=== PATIENT | male | born 1955 | race American Indian/Alaskan Native ===

== ENCOUNTER 2017-02-21 06:40 | Emergency (ER) | payer OTHER ==
[2017-02-21 07:53] LABS: Basophils % (Auto) 0.9 % (0.0-1.8); Hematocrit 40.3 % (35.5-45.6); Hemoglobin 13.3 gm/dl (11.8-15.2); Mean Corpuscular HGB Conc 33 % (32-34); Mean Corpuscular Hemoglobin 28 pg (28-32); Mean Corpuscular Volume 84 fl (84-94); Platelet Count 181 K/mm3 (140-440); Red Blood Count 4.78 M/mm3 (3.65-5.03); Red Cell Distribution Width 13.8 % (13.2-15.2); White Blood Count 5.8 K/mm3 (4.5-11.0)
[2017-02-21 08:08] LABS: Anion Gap 17 mmol/L; BUN/Creatinine Ratio 12; Blood Urea Nitrogen 11 mg/dL (9-20); Carbon Dioxide 26 mmol/L (22-30); Chloride 102.5 mmol/L (98-107); Glucose 105 mg/dL (75-100); Potassium 3.8 mmol/L (3.6-5.0); Sodium 142 mmol/L (137-145)
[2017-02-21] MEDS ORDERED: MOTRIN PO ONE (10:21)
[2017-02-21] MEDS ORDERED: TYLENOL PO ONE (10:21)
[2017-02-21 10:43] LABS: Partial Thromboplastin Time 24.7 Sec. (24.2-36.6)
--- NOTE | 2017-02-21 11:12 | XRay Report ---
CHEST 2 VIEWS INDICATION: Chest pain. COMPARISON: 08/25/2012 FINDINGS: PA and lateral chest radiographs again suggest slight left ventricular prominence and post CABG changes with grossly normal mediastinal and hilar contours. Aortic knob calcifications. No pleural effusions or CHF. Slight thoracic spine degenerative spurring. CONCLUSION: No acute chest process or significant interval change, as described. Thank you for the opportunity to participate in this patient's care.
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
[2017-02-21 11:37] VITALS: BP 125/78
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
== END 2017-02-21 11:37 | disposition home or self-care (01) ==
LOC: ED 06:40
DX: R07.89 Other chest pain (principal); E11.9 Type 2 diabetes mellitus without complications; Z95.1 Presence of aortocoronary bypass graft
CPT/HCPCS: 36415; 71020; 80048; 84484; 85025; 85610; 85730; 93005; 93010

== ENCOUNTER 2021-10-11 09:46 | Emergency (ER) | payer OTHER ==
[2021-10-11 10:07] VITALS: BP 109/72
--- NOTE | 2021-10-11 10:52 | Electrocardiograph Report ---
[facility] Test Date: 2021-10-11 Test Time: 10:13:09 Pat Name: KEVYN TRAN Department: Room: Gender: M Senior Account Manager: VARGAS : 1955 Requested By: KESHAV PARKER Order Number: [id number] Reading MD: Krystian Arce Measurements Intervals Foster Rate: 54 P: 75 OR: 163 QRS: 42 QRSD: 92 T: -52 QT: 429 QTc: 407 Interpretive Statements Sinus rhythm Inferior infarct, age indeterminate Nonspecific T abnormalities, lateral leads No previous ECG available for comparison Electronically Signed On 10-11-2021 10:51:59 EDT by Krystian Arce
[2021-10-11 14:15] LABS: Hematocrit 41.3 % (35.5-45.6); Hemoglobin 13.1 gm/dl (11.8-15.2); Mean Corpuscular HGB Conc 32 % (32-34); Mean Corpuscular Volume 83 fl (84-94); Red Blood Count 5.01 M/mm3 (3.65-5.03); Red Cell Distribution Width 14.9 % (13.2-15.2)
[2021-10-11 15:15] LABS: Platelet Count 194 K/mm3 (140-440)
--- NOTE | 2021-10-11 15:17 | Emergency Department Report ---
ED General Adult HPI - General Chief complaint: Dizziness Stated complaint: DIZZY,LOW BS PUI?: No Time Seen by Provider: 10/11/21 12:41 Source: patient Mode of arrival: Ambulatory Limitations: No Limitations - History of Present Illness Initial comments: Patient is a 65-year-old male that comes to the ER complaining of morning d izziness after he takes his metoprolol. Heart rate today noted to be in the 50s. He does endorse weakness and muscle fatigue as well. He denies chest pain or shortness of breath. Home medications include aspirin Metformin Lisinopril And metoprolol He takes Motrin for his low back pain. He has an appointment with orthopedics tomorrow. Patient denies any fever or chills. He denies any cough. He denies any dysuria. Denies any back pain or abdominal pain. Denies nausea vomiting diarrhea. - Related Data Allergies Allergy/AdvReac Type Severity Reaction Status Date / Time No Known Allergies Allergy Unverified 02/21/17 06:58 ED Review of Systems ROS: Stated complaint: DIZZY,LOW BS Other details as noted in HPI Comment: All other systems reviewed and negative ED Past Medical Hx - Past Medical History Previous Medical History?: Yes Hx Hypertension: Yes Hx Diabetes: Yes - Surgical History Past Surgical History?: Yes Additional Surgical History: open heart sx 2006, no stents - Family History Family history: no significant - Social History Smoking Status: Never Smoker Substance Use Type: Alcohol ED Physical Exam - General Limitations: No Limitations General appearance: alert, in no apparent distress - Head Head exam: Present: atraumatic, normocephalic - Eye Eye exam: Present: normal appearance - ENT ENT exam: Present: mucous membranes moist - Neck Neck exam: Present: normal inspection - Respiratory Respiratory exam: Present: normal lung sounds bilaterally. Absent: respiratory distress - Cardiovascular Cardiovascular Exam: Present: regular rate, normal rhythm. Absent: systolic murmur, diastolic murmur, rubs, gallop - GI/Abdominal GI/Abdominal exam: Present: soft, normal bowel sounds - Rectal Rectal exam: Present: deferred - Extremities Exam Extremities exam: Present: normal inspection - Back Exam Back exam: Present: normal inspection - Neurological Exam Neurological exam: Present: alert, oriented X3 - Psychiatric Psychiatric exam: Present: normal affect, normal mood - Skin Skin exam: Present: warm, dry, intact, normal color. Absent: rash ED Course Vital Signs 10/11/21 10:06 Temperature 98.5 F Pulse Rate 55 L Respiratory 16 Rate Blood Pressure 109/72 [Left] O2 Sat by Pulse 96 Oximetry ED Medical Decision Making - Lab Data Result diagrams: 10/11/21 13:41 10/11/21 13:41 - EKG Data EKG shows normal: sinus rhythm Rate: normal - EKG Data When compared to previous EKG there are: no significant change Interpretation: no acute changes - Medical Decision Making Labs 10/11/21 10/11/21 10/11/21 10:05 13:41 13:41 WBC 5.1 RBC 5.01 Hgb 13.1 Hct 41.3 MCV 83 L MCH 26 L MCHC 32 RDW 14.9 Plt Count 194 Sodium 138 Potassium 4.8 Chloride 100.7 Carbon Dioxide 24 Anion Gap 18 BUN 11 Creatinine 1.1 Estimated GFR > 60 BUN/Creatinine Ratio 10 Glucose 100 POC Glucose 126 H Calcium 9.6 Total Bilirubin 0.40 AST 27 ALT 29 Alkaline Phosphatase 55 Total Protein 7.5 Albumin 4.7 Albumin/Globulin Ratio 1.7 TSH 10/11/21 13:41 WBC RBC Hgb Hct MCV MCH MCHC RDW Plt Count Sodium Potassium Chloride Carbon Dioxide Anion Gap BUN Creatinine Estimated GFR BUN/Creatinine Ratio Glucose POC Glucose Calcium Total Bilirubin AST ALT Alkaline Phosphatase Total Protein Albumin Albumin/Globulin Ratio TSH 1.410 Vital Signs 10/11/21 10:06 Temperature 98.5 F Pulse Rate 55 L Respiratory 16 Rate Blood Pressure 109/72 [Left] O2 Sat by Pulse 96 Oximetry Placed was placed on rn cardiac while in the ER. He was bradycardic in the 50s to 60s the entire time. He had no ventricular arrhythmias. No heart block. Labs noted. TSH normal. Blood glucose normal. I suspect based on the patient's history that his beta-ludin may need adjusted. Patient have had a long discussion about this. He has been on the beta-ludin for the last 15 years. He states at one time they did have to decrease it. I told the patient that we do not follow him over time that we would recommend that he follow-up with his PCP and/or account resolution specialist as soon as possible discussed medication changes and that they can monitor his response to his medication adjustments. The entire time in the ER the patient is remained without complaint. He is ambulatory, not ill nontoxic and afebrile. Patient being discharged home with discharge plan of care including diet, activity, medication and follow-up. He verbalizes understanding of plan of care - Differential Diagnosis Rule out hypothyroidism, adverse medication side effect, arrhythmia, hypogl Critical care attestation.: If time is entered above; I have spent that time in minutes in the direct care of this critically ill patient, excluding procedure time. ED Disposition Clinical Impression: Dizzy, Bradycardia, On beta ludin at home Disposition: HOME / SELF CARE / HOMELESS Is pt being admited?: No Does the pt Need Aspirin: No Condition: Stable Additional Instructions: MEDICATIONS WE DISCUSSED MAKE APPNT WITH PCP AND OR CARDIOLOGY FOR NEXT WEEK IN THE MEAN TIME RECORD YOUR BP AND HEART RATE; WELL BLOOD SUGAR EVERY MORNING AT THE SAME TIME TAKE THIS LOG WITH YOU TO THE MD DIET AND ACTIVITY TOLERATED Referrals: PRIMARY CARE, [Primary Care Provider] - 3-5 Days Time of Disposition: 15:15
[2021-10-11 15:35] LABS: Alanine Aminotransferase 29 units/L (7-56); Albumin 4.7 g/dL (3.9-5); BUN/Creatinine Ratio 10; Blood Urea Nitrogen 11 mg/dL (9-20); Calcium 9.6 mg/dL (8.4-10.2); Hemolysis Index 9
== END 2021-10-11 15:43 | disposition home or self-care (01) ==
LOC: ED 09:46
DX: R42 Dizziness and giddiness (principal); R00.1 Bradycardia, unspecified; I10 Essential (primary) hypertension; E11.9 Type 2 diabetes mellitus without complications; F10.20 Alcohol dependence, uncomplicated
CPT/HCPCS: 36415; 80053; 82962; 84443; 85027; 93005; 99282; 99283